=== PATIENT | male | born 1950 | race Caucasian/White ===

== ENCOUNTER 2020-12-18 09:52 | Emergency (ER) | payer OTHER ==
[~2020-12-18] VITALS: Ht 188 cm; Wt 85.3 kg
--- NOTE | 2020-12-18 09:54 | NUR ---
PT BROUGHT TO BED 7 VIA CAROLE العلي
[2020-12-18 09:59] VITALS: BP 138/71
[2020-12-18] MEDS ORDERED: KETOROLAC 60 MG/2 ML VIAL IM ONE (10:00)
--- NOTE | 2020-12-18 10:12 | NUR ---
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
[2020-12-18] MEDS ORDERED: IBUP-2213 PO (11:26)
[2020-12-18 12:12] VITALS: BP 132/61
--- NOTE | 2020-12-18 12:12 | NUR ---
Patient discharged with v/s stable. Written and verbal after care instructions given and explained. Patient alert, oriented and verbalized understanding of instructions. Ambulatory with steady gait. All questions addressed prior to discharge. ID band removed. Patient advised to follow up with PMD. Rx of IBUPROFEN 600 MG given. Patient educated on indication of medication including possible reaction and side effects. Opportunity to ask questions provided and answered.PATIENT PROVIDED WITH BUS PASS.
== END 2020-12-18 12:12 | disposition home or self-care (01) ==
LOC: MED 09:52
DX: S01.81XA Laceration without foreign body of other part of head, initial encounter (principal); S80.01XA Contusion of right knee, initial encounter; Z86.69 Personal history of other diseases of the nervous system and sense organs; Z98.890 Other specified postprocedural states; V19.9XXA Pedal cyclist (driver) (passenger) injured in unspecified traffic accident, initial encounter; Y93.89 Activity, other specified; Y92.410 Unspecified street and highway as the place of occurrence of the external cause; Y99.8 Other external cause status
CPT/HCPCS: 12011; 73562; 96372; 99283; J1885; Q0092